=== PATIENT | male | born 1985 | race Caucasian/White ===

== ENCOUNTER → 2019-04-22 | Outpatient (REF) | payer BC | LOC: M LAB REF 12:13 | PROVIDERS: ATTEND Physician Assistant Medical | DX: J02.9 Acute pharyngitis, unspecified (principal) ==

== ENCOUNTER → 2021-09-07 | Outpatient (CLI) | payer BC, OTHER ==
[~2021-09-07] MED LIST: IBUP200C29 PO; OMEP1CAP73 PO; ONDA-83 PO; SUMA100T2 PO; [UNRECOGNIZED DRUG - OTHER] PO
== END ==
LOC: M LABSMTC 12:46
PROVIDERS: ATTEND Anesthesiology
DX: Z01.818 Encounter for other preprocedural examination (principal); Z11.52 Encounter for screening for COVID-19

== ENCOUNTER → 2021-10-15 | Outpatient (CLI) | payer OTHER ==
[~2021-10-15] MED LIST changes: +EXCETAB33 PO
== END ==
LOC: M LABSMTC 09:28
PROVIDERS: ATTEND Anesthesiology
DX: Z01.812 Encounter for preprocedural laboratory examination (principal); Z11.52 Encounter for screening for COVID-19

== ENCOUNTER 2021-10-20 13:24 | Day surgery (SDC) | payer OTHER ==
[~2021-10-20] VITALS: Ht 175.3 cm; Wt 86.1 kg
[~2021-10-20 13:24] MED LIST changes: +LR 1,000 ML IV ONE; +ceFAZolin SOD 2 GM in IV 1 EA IV ONE
[2021-10-20] MEDS ORDERED: propofoL 200 MG/20 ML VIAL As Ordered ONE (14:26)
[2021-10-20] MEDS ORDERED: LIDOCAINE 2% 100MG/5ML SDV (FOR ANES.) As Ordered ONE (14:27)
[2021-10-20] MEDS ORDERED: ROCURONIUM BROMIDE 50 MG/5 ML VIAL As Ordered ONE (14:27)
[2021-10-20] MEDS ORDERED: ONDANSETRON 4MG/2ML VIAL As Ordered ONE (14:28)
[2021-10-20] MEDS ORDERED: MIDAZOLAM INJ 2MG/2ML VIAL (J2250 PER 1MG) As Ordered ONE (14:28)
[2021-10-20] MEDS ORDERED: dexameTHASONE 4 MG/ML 1ML VIAL (J1100 PER 1MG) As Ordered ONE (14:28)
[2021-10-20] MEDS ORDERED: fentaNYL 100 MCG/2 ML INJECTION As Ordered ONE ×3 (14:28→17:23)
[2021-10-20] MEDS ORDERED: KETOROLAC 60MG 2ML VIAL As Ordered ONE (14:29)
[2021-10-20] MEDS ORDERED: SUGAMMADEX SODIUM 500 MG/5 ML VIAL (BRIDION) As Ordered ONE (14:48)
[2021-10-20] MEDS ORDERED: BUPIVACAINE/EPIN 0.25% 30 ML VIAL As Ordered ONE (15:18)
[2021-10-20] MEDS ORDERED: LIDOCAINE 5% OINT 30GM TUBE As Ordered ONE (15:50)
[2021-10-20] MEDS ORDERED: ACETAMINOPHEN 1000MG 100ML IV BTL (OFIRMEV) (J0131 PER 10MG) As Ordered ONE (15:56)
[2021-10-20] MEDS ORDERED: LABETALOL 100MG/20ML VIAL As Ordered ONE (17:00)
[2021-10-20] MEDS: fentaNYL 100 MCG/2 ML INJECTION IV PRN ×4 (17:25→17:40)
[2021-10-20] MEDS ORDERED: ONDANSETRON 4MG/2ML VIAL IV PRN (17:55)
[2021-10-20] MEDS ORDERED: LR 1,000 ML IV SCH (17:55)
[2021-10-20] MEDS ORDERED: NORCO, ANEXSIA 5/325MG TABLET (HYDROcodone/ACETAMINOPHEN) PO PRN (17:55)
[2021-10-20] MEDS: oxyCODONE 5MG TAB PO PRN ×2 (18:02→18:41)
[2021-10-20 19:40] VITALS: BP 131/80
== END 2021-10-20 19:57 | disposition home or self-care (01) ==
LOC: M SDC 13:24
PROVIDERS: ATTEND Surgery
DX: K40.90 Unilateral inguinal hernia, without obstruction or gangrene, not specified as recurrent (principal); K21.9 Gastro-esophageal reflux disease without esophagitis; G43.909 Migraine, unspecified, not intractable, without status migrainosus; F41.9 Anxiety disorder, unspecified; F32.9 Major depressive disorder, single episode, unspecified; Z79.899 Other long term (current) drug therapy
CPT/HCPCS: 49650; C1781; J0131; J0690; J1100; J1885; J2250; J2405; J3010; S2900

== ENCOUNTER → 2022-05-02 | Outpatient (CLI) | payer OTHER ==
[~2022-05-02] MED LIST changes: +EXCETAB32 PO; -EXCETAB33 PO; -LR 1,000 ML IV ONE; -ceFAZolin SOD 2 GM in IV 1 EA IV ONE
== END ==
LOC: M RAD 15:54
PROVIDERS: ATTEND Surgery
DX: N49.2 Inflammatory disorders of scrotum (principal); N50.3 Cyst of epididymis; N43.3 Hydrocele, unspecified

== ENCOUNTER → 2022-08-10 | Outpatient (REF) | payer OTHER ==
[2022-08-10 13:52] LABS: HEMATOCRIT 47.4 % (42.0-52.0); HEMOGLOBIN 15.6 g/dl (13.5-17.5); MEAN CORPUSCULAR HEMOGLOBIN 28.8 pg (27.0-33.0); MEAN CORPUSCULAR HGB CONC 32.9 g/dl (32.0-36.5); MEAN CORPUSCULAR VOLUME 87.6 fl (80.0-96.0); PLATELET COUNT, AUTOMATED 263 10^3/uL (150-450); RED BLOOD COUNT 5.41 10^6/uL (4.30-6.10)
[2022-08-10 14:43] LABS: ALBUMIN 4.3 GM/DL (3.2-5.2); ALT/SGPT 20 U/L (12-78); BILIRUBIN,TOTAL 0.6 MG/DL (0.2-1.0); BLOOD UREA NITROGEN 8 MG/DL (7-18); CALCIUM LEVEL 9.4 MG/DL (8.5-10.1); CARBON DIOXIDE LEVEL 31 MEQ/L (21-32); CHLORIDE LEVEL 103 MEQ/L (98-107); CREATININE FOR GFR 0.89 MG/DL (0.70-1.30); FREE T4 1.02 NG/DL (0.76-1.46); GLOMERULAR FILTRATION RATE > 60.0 (>60); GLUCOSE, FASTING 77 MG/DL (70-100); MAGNESIUM LEVEL 2.1 MG/DL (1.8-2.4); POTASSIUM SERUM 4.1 MEQ/L (3.5-5.1); SODIUM LEVEL 138 MEQ/L (136-145); THYROID STIMULATING HORMONE 0.659 uIU/ML (0.358-3.740); TOTAL PROTEIN 7.7 GM/DL (6.4-8.2)
== END ==
LOC: M SFHCADAM 11:21
PROVIDERS: ATTEND Family Medicine
DX: G43.009 Migraine without aura, not intractable, without status migrainosus (principal); K21.9 Gastro-esophageal reflux disease without esophagitis

== ENCOUNTER → 2022-08-22 | Outpatient (REF) | payer OTHER | LOC: M SFHCADAM 17:07 | PROVIDERS: ATTEND Family Medicine | DX: R05.9 Cough, unspecified (principal) ==

== ENCOUNTER → 2024-06-13 | Outpatient (REF) | payer OTHER | LOC: M LABSMT 13:25 | PROVIDERS: ATTEND Urology | DX: Z53.9 Procedure and treatment not carried out, unspecified reason (principal) ==

== ENCOUNTER → 2024-08-06 | Outpatient (CLI) | payer OTHER ==
[~2024-08-06] MED LIST changes: +CETI10CA2 PO; +CLAR10CA3 PO
[2024-08-06 18:26] LABS: HEMATOCRIT 44.3 % (42.0-52.0); HEMOGLOBIN 14.4 g/dl (13.5-17.5); MEAN CORPUSCULAR HEMOGLOBIN 28.7 pg (27.0-33.0); MEAN CORPUSCULAR HGB CONC 32.5 g/dl (32.0-36.5); MEAN CORPUSCULAR VOLUME 88.4 fl (80.0-96.0); PLATELET COUNT, AUTOMATED 221 10^3/uL (150-450); RED BLOOD COUNT 5.01 10^6/uL (4.30-6.10); WHITE BLOOD COUNT 9.1 10^3/uL (4.0-10.0)
[2024-08-06 18:57] LABS: ALBUMIN 3.9 G/DL (3.2-5.2); ALKALINE PHOSPHATASE 61 U/L (46-116); ALT/SGPT 22 U/L (7.0-40); AST/SGOT 20 U/L (<34); BILIRUBIN,TOTAL 0.5 MG/DL (0.3-1.2); BLOOD UREA NITROGEN 13 MG/DL (9-23); CALCIUM LEVEL 9.7 MG/DL (8.5-10.1); CARBON DIOXIDE LEVEL 31 MMOL/L (20-31); CHLORIDE LEVEL 102 MMOL/L (98-107); CREATININE FOR GFR 0.87 MG/DL (0.70-1.30); GLOMERULAR FILTRATION RATE > 60.0 (>60); GLUCOSE, FASTING 111 MG/DL (60-100); POTASSIUM SERUM 3.6 MMOL/L (3.5-5.1); SODIUM LEVEL 141 MMOL/L (136-145); TOTAL PROTEIN 7.2 G/DL (5.7-8.2)
[2024-08-07 11:14] LABS: APPEARANCE, URINE HAZY (CLEAR); BACTERIA, URINE AUTO NEGATIVE (NEGATIVE); BILIRUBIN, URINE AUTO NEGATIVE (NEGATIVE); BLOOD, URINE BLOOD 3+ (NEGATIVE); CALCIUM OXALATE CRYSTALS SMALL; COLOR, URINE YELLOW (YELLOW); GLUCOSE, URINE (UA) AUTO NEGATIVE (NEGATIVE); KETONE, URINE AUTO NEGATIVE (NEGATIVE); LEUKOCYTE ESTERASE, URINE AUTO NEGATIVE (NEGATIVE); NITRITE, URINE AUTO NEGATIVE (NEGATIVE); PROTEIN, URINE AUTO NEGATIVE (NEGATIVE); RBC, URINE AUTO 120 /HPF (0-3); SPECIFIC GRAVITY URINE AUTO 1.019 (1.002-1.035); SQUAMOUS EPITHELIAL CELL UR AU 0 /HPF (0-6); UROBILINOGEN, URINE AUTO 0.2 mg/dL (0.0-2.0); WBC, URINE AUTO 2 /HPF (0-3)
== END ==
LOC: M LAB 17:28
PROVIDERS: ATTEND Urology
DX: N43.3 Hydrocele, unspecified (principal)

== ENCOUNTER 2024-08-18 11:49 | Day surgery (SDC) | payer OTHER ==
[2024-08-11] MEDS: ceFAZolin SOD 2 GM in IV 1 EA IV ONE (15:35)
[~2024-08-18] VITALS: Ht 175.3 cm; Wt 90.5 kg
[~2024-08-18 11:49] MED LIST changes: +ceFAZolin SOD 2 GM in IV 1 EA IV ONE
[2024-08-18] MEDS ORDERED: LR 1,000 ML IV SCH ×2 (13:15→16:10)
[2024-08-18] MEDS ORDERED: KETOROLAC 60MG 2ML VIAL As Ordered ONE (15:06)
[2024-08-18] MEDS ORDERED: ONDANSETRON 4MG 2ML VIAL As Ordered ONE (15:06)
[2024-08-18] MEDS ORDERED: dexmedeTOMIDine (4MCG/ML)200MCG/50ML BTL (PRECEDEX) As Ordered ONE (15:06)
[2024-08-18] MEDS ORDERED: LIDOCAINE 2% 100MG/5ML SDV (FOR ANES.) As Ordered ONE (15:06)
[2024-08-18] MEDS ORDERED: propofoL 200 MG/20 ML VIAL As Ordered ONE (15:06)
[2024-08-18] MEDS ORDERED: MIDAZOLAM INJ 2MG/2ML VIAL As Ordered ONE (15:06)
[2024-08-18] MEDS ORDERED: fentaNYL 250 MCG/5 ML INJECTION As Ordered ONE (15:06)
[2024-08-18] MEDS ORDERED: LIDOCAINE 5% OINT 30GM TUBE As Ordered ONE (15:11)
[2024-08-18] MEDS ORDERED: ACETAMINOPHEN 1000MG 100ML IV BAG As Ordered ONE (15:53)
[2024-08-18] MEDS: BACITRACIN OINTMENT 30GM TUBE As Ordered ONE (16:08)
[2024-08-18] MEDS: LIDOCAINE 2% MDV 20ML VIAL As Ordered ONE (16:09)
[2024-08-18] MEDS ORDERED: fentaNYL 100 MCG/2 ML INJECTION IV PRN (16:10)
[2024-08-18] MEDS ORDERED: ONDANSETRON 4MG 2ML VIAL IV PRN (16:10)
[2024-08-18 17:20] VITALS: BP 121/69; TEMP 97.8; O2SAT 98
== END 2024-08-18 18:19 | disposition home or self-care (01) ==
LOC: M SDC 11:49
PROVIDERS: ATTEND Urology
DX: N43.3 Hydrocele, unspecified (principal); K21.9 Gastro-esophageal reflux disease without esophagitis; F41.9 Anxiety disorder, unspecified; F32.A Depression, unspecified; Z79.899 Other long term (current) drug therapy
CPT/HCPCS: 54640; 55040; 88302; J0131; J0665; J1100; J1885; J2250; J2405; J3010

== ENCOUNTER → 2024-11-26 | Outpatient (REF) | payer OTHER ==
[~2024-11-26] MED LIST changes: -ceFAZolin SOD 2 GM in IV 1 EA IV ONE
[2024-11-26 17:40] LABS: APPEARANCE, URINE CLEAR (CLEAR); BACTERIA, URINE AUTO NEGATIVE (NEGATIVE); BILIRUBIN, URINE AUTO NEGATIVE (NEGATIVE); BLOOD, URINE BLOOD NEGATIVE (NEGATIVE); COLOR, URINE YELLOW (YELLOW); GLUCOSE, URINE (UA) AUTO NEGATIVE (NEGATIVE); KETONE, URINE AUTO NEGATIVE (NEGATIVE); LEUKOCYTE ESTERASE, URINE AUTO NEGATIVE (NEGATIVE); MUCUS, URINE SMALL (NEGATIVE); NITRITE, URINE AUTO NEGATIVE (NEGATIVE); PROTEIN, URINE AUTO NEGATIVE (NEGATIVE); RBC, URINE AUTO 0 /HPF (0-3); SPECIFIC GRAVITY URINE AUTO 1.024 (1.002-1.035); SQUAMOUS EPITHELIAL CELL UR AU 0 /HPF (0-6); UROBILINOGEN, URINE AUTO 0.2 mg/dL (0.0-2.0); WBC, URINE AUTO 0 /HPF (0-3)
== END ==
LOC: M SMT 16:54
PROVIDERS: ATTEND Physician Assistant
DX: R31.21 Asymptomatic microscopic hematuria (principal)

== ENCOUNTER → 2024-11-26 | Outpatient (CLI) | payer OTHER | LOC: M ADAMS 14:15 | PROVIDERS: ATTEND Physician Assistant | DX: Z87.442 Personal history of urinary calculi (principal); K59.00 Constipation, unspecified ==

== ENCOUNTER → 2024-12-16 | Outpatient (CLI) | payer OTHER ==
[~2024-12-16] MED LIST changes: +ISOVUE-370 76% 100ML VIAL As Ordered ONE
== END ==
LOC: M RAD 09:51
PROVIDERS: ATTEND Urology
DX: N20.0 Calculus of kidney (principal); K57.32 Diverticulitis of large intestine without perforation or abscess without bleeding; K57.30 Diverticulosis of large intestine without perforation or abscess without bleeding; Z87.442 Personal history of urinary calculi
CPT/HCPCS: 74178; Q9967

== ENCOUNTER → 2025-03-01 | Outpatient (REF) | payer OTHER ==
[~2025-03-01] MED LIST changes: -ISOVUE-370 76% 100ML VIAL As Ordered ONE
== END ==
LOC: M SFHCADAM 09:59
PROVIDERS: ATTEND Physician Assistant
DX: R10.13 Epigastric pain (principal); R19.5 Other fecal abnormalities

== ENCOUNTER → 2025-03-12 | Outpatient (CLI) | payer OTHER | LOC: M PLAIMG 13:35 | PROVIDERS: ATTEND Physician Assistant | DX: R10.13 Epigastric pain (principal); R14.0 Abdominal distension (gaseous); R19.5 Other fecal abnormalities ==

== ENCOUNTER 2025-04-29 09:35 | Day surgery (SDC) | payer OTHER ==
[~2025-04-29] VITALS: Ht 175.3 cm; Wt 92.0 kg
[~2025-04-29 09:35] MED LIST changes: +LIDOCAINE 2% 100 MG/5 ML SDV (FOR ANES.) As Ordered ONE
[2025-04-29 11:30] VITALS: BP 140/85; O2SAT 97
== END 2025-04-29 11:30 | disposition home or self-care (01) ==
LOC: M OPP 09:35
PROVIDERS: ATTEND Surgery
DX: K52.9 Noninfective gastroenteritis and colitis, unspecified (principal); K57.30 Diverticulosis of large intestine without perforation or abscess without bleeding; K64.0 First degree hemorrhoids; R10.13 Epigastric pain; K22.89 Other specified disease of esophagus; K44.9 Diaphragmatic hernia without obstruction or gangrene; K29.70 Gastritis, unspecified, without bleeding; Z79.899 Other long term (current) drug therapy
CPT/HCPCS: 43239; 45380; 88305; J3010

== ENCOUNTER → 2025-07-03 | Outpatient (REF) | payer OTHER ==
[~2025-07-03] MED LIST changes: -LIDOCAINE 2% 100 MG/5 ML SDV (FOR ANES.) As Ordered ONE
[2025-07-08 15:38] LABS: BORRELIA SPECIES DNA NOT DETECTED (NOT DETECT)
== END ==
LOC: M SFHCADAM 13:49
PROVIDERS: ATTEND Physician Assistant
DX: K52.9 Noninfective gastroenteritis and colitis, unspecified (principal); W57.XXXA Bitten or stung by nonvenomous insect and other nonvenomous arthropods, initial encounter